=== PATIENT | male | born 1945 | race Caucasian/White ===

== ENCOUNTER 2020-04-02 09:55 | Emergency (ER) | payer MEDICARE ==
[2020-04-02] MEDS ORDERED: Adacel (T-DAP) 0.5 ML SYRINGE ONE (10:19)
[2020-04-02] MEDS ORDERED: Lidocaine 2% w/Epinephrine 1:200K 20 ML VIAL ONE (10:30)
[2020-04-02] MEDS ORDERED: Lidocaine 1% w/Epinephrine 1:100K 20 ML VIAL ONE (10:58)
--- NOTE | 2020-04-02 13:07 | RAD ---
RIGHT KNEE 4 VIEWS: DATE: 04/02/2020. FINDINGS: No fracture or opaque foreign body was seen. There was no sign of joint effusion. The bony structur es no acute change. IMPRESSION: No acute findings. POS: HOME
== END 2020-04-02 10:52 | disposition home or self-care (01) ==
LOC: BURERS 09:55
DX: S81.011A Laceration without foreign body, right knee, initial encounter (principal); K21.9 Gastro-esophageal reflux disease without esophagitis; E78.5 Hyperlipidemia, unspecified; E78.00 Pure hypercholesterolemia, unspecified; I10 Essential (primary) hypertension; Z23 Encounter for immunization; Z79.899 Other long term (current) drug therapy; W29.3XXA Contact with powered garden and outdoor hand tools and machinery, initial encounter; Y93.H2 Activity, gardening and landscaping
CPT/HCPCS: 12002; 90471; 90715